=== PATIENT | male | born 1990 | race Caucasian/White ===

== ENCOUNTER 2017-12-22 07:13 | Emergency (ER) | payer MEDICAID ==
[~2017-12-22] VITALS: Ht 172.7 cm; Wt 97.1 kg
[2017-12-22 07:44] LABS: BASOPHIL % 1.9 % (0-2); PLATELET COUNT 310 x10^3mcL (130-400); RED CELL DISTRIBUTION WIDTH 14.2 % (11.5-14.5)
[2017-12-22 07:53] LABS: CARBON DIOXIDE 27.7 mmol/L (21-32); CHLORIDE SERUM 104 mmol/L (98-107); GFR1 > 60 mL/min; GLUCOSE SERUM 93 mg/dL (74-106); POTASSIUM SERUM 4.5 mmol/L (3.5-5.1); SODIUM SERUM 139 mmol/L (136-145)
[2017-12-22 08:08] LABS: AMPHETAMINE QUAL UR NONE DETECTED (See below)
[2017-12-22 10:07] VITALS: BP 122/75
== END 2017-12-22 10:07 | disposition home or self-care (01) ==
LOC: ED 07:13
PROVIDERS: Emergency Medicine
DX: R07.89 Other chest pain (principal); R06.2 Wheezing; R06.02 Shortness of breath; F41.9 Anxiety disorder, unspecified
CPT/HCPCS: 36415; J1100; J7620

== ENCOUNTER 2019-10-19 14:46 | Emergency (ER) | payer OTHER ==
[~2019-10-19] VITALS: Ht 177.8 cm; Wt 98.9 kg
[2019-10-19 14:52] VITALS: Ht 177.8 cm; Wt 98.9 kg
[2019-10-19 16:21] VITALS: BP 124/72
== END 2019-10-19 16:21 | disposition home or self-care (01) ==
LOC: ED 14:46
DX: T15.12XA Foreign body in conjunctival sac, left eye, initial encounter (principal); X58.XXXA Exposure to other specified factors, initial encounter; Y93.89 Activity, other specified; Y92.89 Other specified places as the place of occurrence of the external cause; Y99.8 Other external cause status

== ENCOUNTER 2020-01-05 19:15 | Emergency (ER) | payer OTHER ==
[~2020-01-05] VITALS: Ht 177.8 cm; Wt 95.3 kg
[2020-01-05 19:22] VITALS: BP 122/83; Ht 177.8 cm; Wt 95.3 kg
== END 2020-01-05 21:02 | disposition home or self-care (01) ==
LOC: ED 19:15
DX: T15.02XA Foreign body in cornea, left eye, initial encounter (principal); H57.12 Ocular pain, left eye; X58.XXXA Exposure to other specified factors, initial encounter; Y93.89 Activity, other specified; Y92.89 Other specified places as the place of occurrence of the external cause; Y99.8 Other external cause status